=== PATIENT | male | born 1950 | race Asian ===

== ENCOUNTER → 2021-09-15 | Outpatient (CLI) | payer OTHER, MEDICAID, SELFPAY ==
[2021-09-11 17:06] LABS: BASOPHILS # (AUTO) 0.1 K/uL (0.0-0.2); EOSINOPHILS # (AUTO) 1.4 K/uL (0.0-0.4); EOSINOPHILS % (AUTO) 13.4 % (0.0-4.0); HEMATOCRIT 35.7 % (36-54); HEMOGLOBIN 11.7 g/dL (14.0-18.0); LYMPHOCYTES # (AUTO) 1.1 K/uL (1.0-5.5); LYMPHOCYTES % (AUTO) 10.5 % (20.5-51.5); MEAN CORPUSCULAR HEMOGLOBIN 33 pg (27-31); MEAN CORPUSCULAR HGB CONC 33 % (32-36); MEAN CORPUSCULAR VOLUME 101 fL (79.0-98.0); MONOCYTES # (AUTO) 0.6 K/uL (0.0-1.0); MONOCYTES % (AUTO) 6.4 % (1.7-9.3); NEUTROPHILS # (AUTO) 6.9 K/uL (1.8-7.7); NEUTROPHILS % (AUTO) 68.7 % (40.0-70.0); PLATELET COUNT (AUTO) 214 K/uL (130-430); RED BLOOD CELL COUNT(AUTO) 3.55 MIL/uL (4.2-6.2); RED CELL DISTRIBUTION WIDTH 15.4 % (9.0-15.0); WHITE BLOOD COUNT (AUTO) 10.1 K/uL (4.8-10.8)
[2021-09-11 17:16] LABS: INR 1.1 (0.80-1.20); PROTHROMBIN TIME 10.8 SECS (9.5-12.5)
[2021-09-11 17:18] LABS: ALBUMIN 2.9 g/dL (3.4-4.8); CALCIUM 9.4 mg/dL (8.4-11.0); POTASSIUM 4.3 mmol/L (3.5-5.1); TOTAL BILIRUBIN 0.2 mg/dL (0.0-1.0)
[2021-09-11 17:42] LABS: CREATININE 8.62 mg/dL (0.55-1.30)
[~2021-09-15] VITALS: Ht 167.6 cm; Wt 70.8 kg
[~2021-09-15] MED LIST: CEFAZOLIN SOD 1 GM in D5W 50 ML IV ONE
== END | disposition home or self-care (01) ==
LOC: SLB 10:00 → EDSTATUS 09-16 08:15
PROVIDERS: ATTEND Internal Medicine
DX: Z01.818 Encounter for other preprocedural examination (principal); R19.5 Other fecal abnormalities; Z20.822 Contact with and (suspected) exposure to COVID-19; I51.7 Cardiomegaly; I70.0 Atherosclerosis of aorta; J98.4 Other disorders of lung; Z51.81 Encounter for therapeutic drug level monitoring; Z79.899 Other long term (current) drug therapy
CPT/HCPCS: 36415; 71046; 80053; 85025; 85610; 85730; 93005; U0003; J0690; J7060

== ENCOUNTER 2021-11-26 16:10 | Emergency (ER) | payer OTHER, MEDICAID ==
[~2021-11-26] VITALS: Ht 167.6 cm; Wt 66.2 kg
[2021-11-26 16:18] VITALS: BP_SYST 95
--- NOTE | 2021-11-26 16:32 | NUR ---
Patient to ER bed 03 to gown for evaluation. Side rails up.
--- NOTE | 2021-11-26 16:35 | NUR ---
Pt coming from home accompanied by son. Son states pt has c/o confusion and hallucinations x 2 days and is worse today. Currently pt is A&Ox4. Allergic to morphine. Has hx of HTN, Renal Failure, Glaucoma, and COPD. Pt is on peritoneal dialysis and has cath on left abdomen. Has skin abnormality bilaterally lower legs. No chest pain and no sob. O2 is at 89% RA, NC placed at 2L and O2 is now at 97%. All other vitals stable. Uses wheelchair has unsteady gait. Connected pt to oil painter. Bed in lowest position.
--- NOTE | 2021-11-26 16:41 | NUR ---
ER at bedside examining patient.
--- NOTE | 2021-11-26 17:32 | NUR ---
COVID-19 ANGEL SWAB OBTAINED AND SENT TO THE LAB.
[2021-11-26 18:11] LABS: HEMATOCRIT 37.2 % (36-54); HEMOGLOBIN 12.7 g/dL (14.0-18.0); MEAN CORPUSCULAR HEMOGLOBIN 34 pg (27-31); MEAN CORPUSCULAR HGB CONC 34 % (32-36); MEAN CORPUSCULAR VOLUME 99 fL (79.0-98.0); PLATELET COUNT (AUTO) 198 K/uL (130-430); RED BLOOD CELL COUNT(AUTO) 3.75 MIL/uL (4.2-6.2); RED CELL DISTRIBUTION WIDTH 16.2 % (9.0-15.0); WHITE BLOOD COUNT (AUTO) 12.4 K/uL (4.8-10.8)
[2021-11-26 18:21] LABS: ANION GAP 9 (5-15); CALCIUM 8.7 mg/dL (8.4-11.0); CHLORIDE 93 mmol/L (98-107); GLUCOSE 106 mg/dL (70-99); POTASSIUM 3.4 mmol/L (3.5-5.1); SODIUM SERUM 131 mmol/L (136-145); UREA NITROGEN, BLOOD 55 mg/dL (8-21)
[2021-11-26 18:31] LABS: CREATININE 9.34 mg/dL (0.55-1.30); GFR AFRICAN AMERICAN 7 mL/min (>90)
[2021-11-26 18:33] LABS: ALANINE AMINOTRANSFERASE 24 U/L (12-78); ASPARTATE AMINOTRANSFERASE 42 U/L (10-37); TOTAL BILIRUBIN 0.3 mg/dL (0.0-1.0)
[2021-11-26 18:34] LABS: ALBUMIN 2.7 g/dL (3.4-4.8)
[2021-11-26 19:51] LABS: BAND % (MANUAL) 2 % (0-6); BASOPHILS % (MANUAL) 0 % (0-2); EOSINOPHILS % (MANUAL) 12 % (0-7); LYMPHOCYTES % (MANUAL) 8 % (20-46); MONOCYTES % (MANUAL) 15 % (0-11)
--- NOTE | 2021-11-27 01:03 | NUR ---
Gave report to [facility]
[2021-11-27 01:04] VITALS: BP_SYST 136
--- NOTE | 2021-11-27 01:04 | NUR ---
pt resting comfortable in bed AOX4 VSS Verbally responsive Able to make needs known Will continue to monitor
--- NOTE | 2021-11-27 03:00 | NUR ---
Patient to be transferred to [facility]. Is being transferred due to higher level of care. Receiving facility has accepting physician and available space. ER physician has signed transfer form. Patient or responsible alliance party has agreed to transfer and signed form. Patient belongings inventoried and will be sent with patient. Copy of nursing notes, lab reports, EKG, Physicians Orders and X-rays to be sent with patient. Report called to at receiving facility.
== END 2021-11-27 03:00 ==
LOC: SED 16:10
DX: R44.1 Visual hallucinations (principal); R93.0 Abnormal findings on diagnostic imaging of skull and head, not elsewhere classified; N18.6 End stage renal disease; Z99.2 Dependence on renal dialysis; Z88.5 Allergy status to narcotic agent; Z79.899 Other long term (current) drug therapy; Z20.822 Contact with and (suspected) exposure to COVID-19
CPT/HCPCS: 36415; 70450-TC; 71045; 76376; 80053; 82140; 83605; 84484; 85007; 85027; 87040; 93005; 99285